=== PATIENT | male | born 1945 | race Caucasian/White ===

== ENCOUNTER 2016-07-21 10:43 | Outpatient (CLI) | payer MEDICARE ==
[2016-07-21 18:04] LABS: Sex Hormone Binding Globulin 60.8 nmol/L (11-78); Testosterone, Total Less than 4.3 ng/dL (221-716)
[2016-07-21 18:42] LABS: Testosterone, Free 1.6 pg/mL (47-244)
== END 2016-07-21 10:44 | disposition home or self-care (01) ==
LOC: NAV LAB 10:43
PROVIDERS: ATTEND Family Medicine
DX: N52.9 Male erectile dysfunction, unspecified (principal)
CPT/HCPCS: 36415; 84270; 84403

== ENCOUNTER 2016-08-05 14:31 | Emergency (ER) | payer MEDICARE ==
[2016-08-05] MEDS ORDERED: Lidocaine 1% 20 ML MDV ONE (14:43)
--- NOTE | 2016-08-05 15:12 | CT ---
CT OF THE BRAIN WITHOUT CONTRAST: COMPARISON: None. HISTORY: Head injury after a fall. TECHNIQUE: Multiple contiguous axial images were obtained in a CT of the brain without contrast. FINDINGS: The brain is normal in morphology and attenuation without focal lesions or confluent areas of infarc tion. There is no evidence of hydrocephalus, intracranial hemorrhage, or extraaxial fluid collectio n. Soft tissue swelling is seen in the occipital scalp. The underlying calvarium is unremarkable. The visualized paranasal sinuses and mastoid air cells are well aerated. IMPRESSION: No evidence of acute intracranial abnormality. POS: [facility]
[2016-08-05] MEDS ORDERED: HYDROcodone/Acetaminophen 10/325 mg Tablet ONE (15:20)
[2016-08-05] MEDS ORDERED: Adacel (T-DAP) 0.5 ML VIAL ONE (15:23)
--- NOTE | 2016-08-05 15:31 | ERRECORD ---
[facility] EMERGENCY RECORD HPI HEAD INJURY (14:43 JLOY) CHIEF COMPLAINT: Patient presents for evaluation of head injury, Patient presents for evaluation of Pt was picking up a heavy object and lost his balance. Fell backward and hit his head on a metal shelving unit. Remembers the fall and hit but says 'everything went white for a second' and he believes he may have passed out for a second. Was able to get up and ambulate though dizzy. Occipital laceration bleeding initially but now slowed. EMS put in a c-collar. Denies neck pain or back pain though he has some chronic pain due to previous injury and fusions. HISTORIAN: History provided by patient. MECHANISM OF INJURY: Mechanism of injury fall, from standing, landing on hard surface, landing on head. LOCATION: Symptoms are localized, most severe in the occipital region. TIME COURSE: Sudden onset of symptoms, There has been no change in the patient's symptoms over time. ASSOCIATED WITH: No associated blurred vision, Associated with dizziness, Associated with headache, Associated with injury, Associated with loss of consciousness, less than 1 minute, No associated nausea, No associated numbness, Associated with open wounds, straight laceration, bleeding controlled, no associated siezure, No associated swelling, No associated tingling, No associated vomiting, No associated weakness. EXACERBATED BY: Patient's condition exacerbated by nothing. RELIEVED BY: Patient's condition relieved by nothing. RISK FACTORS: Intracranial bleed risk factors, advanced age. ROS (14:46 JLOY) CONSTITUTIONAL: Historian denies chills, denies fever, denies lethargy, denies malaise. EYES: Historian denies eye pain, denies photophobia, denies vision changes. ENT: Historian denies rhinorrhea, denies sore throat. CARDIOVASCULAR: Historian denies chest pain. RESPIRATORY: Historian denies cough, denies shortness of breath. GI: Historian denies nausea, denies vomiting. MUSCULOSKELETAL: Historian denies back pain, denies neck pain. NEUROLOGIC: Historian reports dizziness, reports headache, denies paralysis, denies paresthesias, denies sensory changes. Pt reports only slight pain at the laceration wound itself. PAST MEDICAL HISTORY MEDICAL HISTORY: No past medical history. (14:43 JNOL) MALE SURGICAL HISTORY: BACK AND NECK SURGERY,, Surgical history of orthopedic surgery, LEFT SHOULDER/KNEE, Surgical history of tonsillectomy. (14:43 JNOL) PSYCHIATRIC HISTORY: Notes: ADHD. (14:43 JNOL) &a-1R&a+25V*p+0X*o3043M*c202B*c15G*c2P*p-0X&a-25V&a+1R Name: Enrike Gama : 1945 M71 MedRec: [id number] AcctNum: [id number] Prepared: Sat Aug 05, 2016 16:14 by Interface Page 1 of 3 pMD [facility] EMERGENCY RECORD SOCIAL HISTORY: Patient denies alcohol use, Patient denies drug use, Patient has no smoking history. (14:43 JNOL) NOTES: Nursing records reviewed, Agree with nursing records. (14:48 JLOY) KNOWN ALLERGIES adhesive Penicillins: Reaction: Rash CURRENT MEDICATIONS No recorded medications PHYSICAL EXAM (14:47 JLOY) CONSTITUTIONAL: Vital Signs Reviewed, Patient appears non toxic, Patient alert and oriented to person, place and time. HEAD: Lacerations, to occipital. EYES: Eye exam included findings of eyelids normal to inspection, Pupils equally round and reactive to light, Extraocular muscles intact, Conjunctiva normal. ENT: Pharynx exam normal, Uvula exam normal, Tonsil exam normal, Mouth exam normal, mucous membranes moist. NECK: Neck exam included findings of normal range of motion, Trachea midline, no tenderness, No midline or lateral tenderness. Full ROM without pain. RESPIRATORY CHEST: Respiratory exam included findings of no respiratory distress, Breath sounds clear, No wheezing, No rales, No rhonchi. CARDIOVASCULAR: Cardiovascular exam included findings of heart rate regular rate and rhythm, Heart sounds normal. BACK: Back exam included findings of normal inspection, range of motion normal, no tenderness. UPPER EXTREMITY: Upper extremity exam included findings of inspection normal, Radial pulse normal, no cyanosis, no clubbing, no edema, Right elbow with small abrasion. LOWER EXTREMITY: Lower extremity exam included findings of inspection normal, Pedal pulse normal, no edema, no calf tenderness. NEURO: [place] coma scale 15, Neuro exam findings include patient oriented to person, place and time, Speech normal, Memory normal, Cranial nerves intact, Deep tendon reflexes normal. SKIN: Skin exam included findings of skin warm, dry, and normal in color, no rash. PSYCHIATRIC: Normal affect. RADIOLOGYINTERPRETATION (15:22 TYRONE) HEAD: Head CT negative, without contrast. BUCCARO: Preliminary review of CT scans by, Radiologist. MEDICATION ADMINISTRATION SUMMARY Drug Name: HYDROcodone-acetaminophen, Dose Ordered: 2 tab(s), Route: &a-1R&a+25V*p+0X*[id number]*c202B*c15G*c2P*p-0X&a-25V&a+1R Name: Enrike Gama : 1945 M71 MedRec: [id number] AcctNum: [id number] Prepared: Sat Aug 05, 2016 16:14 by Interface Page 2 of 3 pMD [facility] EMERGENCY RECORD Oral, Status: Given, Time: 15:30 08/05/2016, Drug Name: Adacel(Tdap Adolesn/Adult)(PF), Dose Ordered: 0.5 mL, Route: Intramuscular, Status: Given, Time: 15:30 08/05/2016, Detailed record available in Medication Service section. DOCTOR NOTES (15:17 TYRONE) TEXT: Pt reports he is overdue on his regular [place]. He normally takes 2 10mg tablets at a time. Will give his usual dose. PROBLEM LIST No recorded problems DIAGNOSIS (15:18 TYRONE) FINAL: PRIMARY: UNS OPEN WOUND SCALP INITIAL ENCNTR. PRESCRIPTION No recorded prescriptions DISPOSITION PATIENT: Disposition Type: Discharge, Disposition: *Discharge Home. (15:18 TYRONE) Patient left the department. (16:10 BRANDON) Canas: TYRONE=MD Christian, Jesus TAYLOR=GERSNO Franz, Cesia &a-1R&a+25V*p+0X*[id number]*c202B*c15G*c2P*p-0X&a-25V&a+1R Name: nErike Gama : 1945 M71 MedRec: [id number] AcctNum: [id number] Prepared: Sat Aug 05, 2016 16:14 by Interface Page 3 of 3 pMD MTDD
--- NOTE | 2016-08-05 15:37 | PICIS ---
[facility] EMERGENCY RECORD TRIAGE ([facility] Aug 05, 2016 14:33 JNOL) TRIAGE NOTES: Fall, trauma activation. ([facility] Aug 05, 2016 14:33 JNOL) PATIENT: NAME: Enrike Gama, AGE: 71, GENDER: male, : Sun 1945, TIME OF GREET: [facility] Aug 05, 2016 14:31, PREFERRED LANGUAGE: Cypriot, ETHNICITY: Not or , ECODE BILLING MAP: [facility] ER, SSN: [id number], Zip Code: [address], KG WEIGHT: 98.88, PHONE: , , , PERSON ID: [id number]. ([facility] Aug 05, 2016 14:33 JNOL) COMPLAINT: HEAD INJURY/FALL. ([facility] Aug 05, 2016 14:33 JNOL) ADMISSION: URGENCY: 3 Urgent, ADMISSION SOURCE: Other, AMBULANCE: [facility], TRANSPORT: AMBULANCE - [facility], BED: ER *TR1. ([facility] Aug 05, 2016 14:33 JNOL) SIRS SCORING: Heart Rate 55-109 (0), Temp range 96.8-101.1 (0), respiratory rate 12-24 (0), Mental Status altered: no (0). (14:43 JNOL) TRIAGE SCREENING: Patient denies suicidal ideation, Patient denies presence of domestic violence. (14:43 JNOL) TREATMENTS IN PROGRESS: Saline Lock, Site: L hand, Gauge: 20. (14:43 JNOL) PROVIDERS: TRIAGE NURSE: Cesia Franz RN. ([facility] Aug 05, 2016 14:33 JNOL) KNOWN ALLERGIES adhesive Penicillins: Reaction: Rash CURRENT MEDICATIONS No recorded medications NURSING PROCEDURE: DISCHARGE NOTE (16:09 JNOL) DISCHARGE: Patient discharged to home, ambulating without assistance, family driving, accompanied by //partner, Discharge instructions given to patient, Simple or moderate discharge teaching performed, by GERSON Callaway, When to return to ER, follow up care, Above person(s) verbalized understanding of discharge instructions and follow-up care, Patient treated and evaluated by physician. BELONGINGS: Belongings and valuables with patient at time of discharge include:, Belongings remain with patient. NURSING PROCEDURE: NURSE NOTES (14:46 JNOL) NURSES NOTES: Notes: See trauma charting for all assessments and procedures. NURSING PROCEDURE: TRANSPORT TO TESTS (14:58 CCRI) TRANSPORT TO TESTS: Patient transported to CT scan, via cart, Accompanied by x-ray technician preventative medicine, Patient arrived in location at 14:44, Patient departed location at 14:55. &a-1R&a+25V*p+0X*s2384K*c202B*c15G*c2P*p-0X&a-25V&a+1R Name: Enrike Gama : 1945 M71 MedRec: [id number] AcctNum: [id number] Prepared: Sat Aug 05, 2016 16:20 by Interface Page 1 of 5 D [facility] EMERGENCY RECORD ORDER DETAILS Order Name: CT Brain WO Con, Status: Active, Time: 14:40 08/05/2016, User: TYRONE, - Ordered for: MD Gonzales Joshua, - Entered by: MD Gonzales Joshua - [facility] Aug 05, 2016 14:40, - Quantity: 1. MEDICATION ADMINISTRATION SUMMARY Drug Name: HYDROcodone-acetaminophen, Dose Ordered: 2 tab(s), Route: Oral, Status: Given, Time: 15:30 08/05/2016, Drug Name: Adacel(Tdap Adolesn/Adult)(PF), Dose Ordered: 0.5 mL, Route: Intramuscular, Status: Given, Time: 15:30 08/05/2016, Detailed record available in Medication Service section. MEDICATION SERVICE Adacel(Tdap Adolesn/Adult)(PF): Order: Adacel(Tdap Adolesn/Adult)(PF) (diphth,pertuss(acell),tet vac/preservative free) - Dose: 0.5 mL : Intramuscular Ordered by: Jesus Gonzales MD Entered by: Jesus Gonzales MD [facility] Aug 05, 2016 15:20 , Acknowledged by: Cesia Franz RN [facility] Aug 05, 2016 15:22 Documented as given by: Cesia Franz RN [facility] Aug 05, 2016 15:30 Patient, Medication, Dose, Route and Time verified prior to administration. IM immunization, Amount given: 0.5 ml, Medication administered to right deltoid, Vaccination information sheet given to patient, Patient appears Awake and alert- acceptable, Correct patient, time, route, dose and medication confirmed prior to administration, Patient advised of actions and side-effects prior to administration, Allergies confirmed and medications reviewed prior to administration, Patient in position of comfort, Side rails up, Cart in lowest position. : Follow Up : No signs or symptoms of allergic reaction noted. (16:09 JNOL) HYDROcodone-acetaminophen: Order: HYDROcodone-acetaminophen (hydrocodone bitartrate/acetaminophen) - Dose: 2 tab(s) : Oral Ordered by: Jesus Gonzales MD Entered by: Jesus Gonzales MD Sat Aug 05, 2016 15:17 , Acknowledged by: Cesia Franz RN Sat Aug 05, 2016 15:18 Documented as given by: Cesia Franz RN Sat Aug 05, 2016 15:30 Patient, Medication, Dose, Route and Time verified prior to administration. Amount given: 2 tabs, Site: Medication administered P.O., Correct patient, time, route, dose and medication confirmed prior to administration, Patient advised of actions and side-effects prior to administration, Allergies confirmed and medications reviewed prior to &a-1R&a+25V*p+0X*l6815S*c202B*c15G*c2P*p-0X&a-25V&a+1R Name: Enrike Gama : 1945 M71 MedRec: [id number] AcctNum: [id number] Prepared: Sat Aug 05, 2016 16:20 by Interface Page 2 of 5 pMD [facility] EMERGENCY RECORD administration, Patient in position of comfort, Side rails up, Cart in lowest position, en route. HPI HEAD INJURY (14:43 [facility]) CHIEF COMPLAINT: Patient presents for evaluation of head injury, Patient presents for evaluation of Pt was picking up a heavy object and lost his balance. Fell backward and hit his head on a metal shelving unit. Remembers the fall and hit but says 'everything went white for a second' and he believes he may have passed out for a second. Was able to get up and ambulate though dizzy. Occipital laceration bleeding initially but now slowed. EMS put in a c-collar. Denies neck pain or back pain though he has some chronic pain due to previous injury and fusions. HISTORIAN: History provided by patient. MECHANISM OF INJURY: Mechanism of injury fall, from standing, landing on hard surface, landing on head. LOCATION: Symptoms are localized, most severe in the occipital region. TIME COURSE: Sudden onset of symptoms, There has been no change in the patient's symptoms over time. ASSOCIATED WITH: No associated blurred vision, Associated with dizziness, Associated with headache, Associated with injury, Associated with loss of consciousness, less than 1 minute, No associated nausea, No associated numbness, Associated with open wounds, straight laceration, bleeding controlled, no associated siezure, No associated swelling, No associated tingling, No associated vomiting, No associated weakness. EXACERBATED BY: Patient's condition exacerbated by nothing. RELIEVED BY: Patient's condition relieved by nothing. RISK FACTORS: Intracranial bleed risk factors, advanced age. ROS (14:46 JLOY) CONSTITUTIONAL: Historian denies chills, denies fever, denies lethargy, denies malaise. EYES: Historian denies eye pain, denies photophobia, denies vision changes. ENT: Historian denies rhinorrhea, denies sore throat. CARDIOVASCULAR: Historian denies chest pain. RESPIRATORY: Historian denies cough, denies shortness of breath. GI: Historian denies nausea, denies vomiting. MUSCULOSKELETAL: Historian denies back pain, denies neck pain. NEUROLOGIC: Historian reports dizziness, reports headache, denies paralysis, denies paresthesias, denies sensory changes. Pt reports only slight pain at the laceration wound itself. PAST MEDICAL HISTORY MEDICAL HISTORY: No past medical history. (14:43 JNOL) MALE SURGICAL HISTORY: BACK AND NECK SURGERY,, Surgical &a-1R&a+25V*p+0X*s4213Y*c202B*c15G*c2P*p-0X&a-25V&a+1R Name: Enrike Gama : 1945 M71 MedRec: [id number] AcctNum: [id number] Prepared: Sat Aug 05, 2016 16:20 by Interface Page 3 of 5 pMD [facility] - [facility] EMERGENCY RECORD history of orthopedic surgery, LEFT SHOULDER/KNEE, Surgical history of tonsillectomy. (14:43 JNOL) PSYCHIATRIC HISTORY: Notes: ADHD. (14:43 JNOL) SOCIAL HISTORY: Patient denies alcohol use, Patient denies drug use, Patient has no smoking history. (14:43 JNOL) NOTES: Nursing records reviewed, Agree with nursing records. (14:48 JLOY) PHYSICAL EXAM (14:47 JLOY) CONSTITUTIONAL: Vital Signs Reviewed, Patient appears non toxic, Patient alert and oriented to person, place and time. HEAD: Lacerations, to occipital. EYES: Eye exam included findings of eyelids normal to inspection, Pupils equally round and reactive to light, Extraocular muscles intact, Conjunctiva normal. ENT: Pharynx exam normal, Uvula exam normal, Tonsil exam normal, Mouth exam normal, mucous membranes moist. NECK: Neck exam included findings of normal range of motion, Trachea midline, no tenderness, No midline or lateral tenderness. Full ROM without pain. RESPIRATORY CHEST: Respiratory exam included findings of no respiratory distress, Breath sounds clear, No wheezing, No rales, No rhonchi. CARDIOVASCULAR: Cardiovascular exam included findings of heart rate regular rate and rhythm, Heart sounds normal. BACK: Back exam included findings of normal inspection, range of motion normal, no tenderness. UPPER EXTREMITY: Upper extremity exam included findings of inspection normal, Radial pulse normal, no cyanosis, no clubbing, no edema, Right elbow with small abrasion. LOWER EXTREMITY: Lower extremity exam included findings of inspection normal, Pedal pulse normal, no edema, no calf tenderness. NEURO: [place] coma scale 15, Neuro exam findings include patient oriented to person, place and time, Speech normal, Memory normal, Cranial nerves intact, Deep tendon reflexes normal. SKIN: Skin exam included findings of skin warm, dry, and normal in color, no rash. PSYCHIATRIC: Normal affect. EVENTS TRANSFER: Triage to Emergency Emergency Room *TR1. (Sat Aug 05, 2016 14:33 JNOL) Removed from Emergency Emergency Room *TR1. (16:10 JNOL) RADIOLOGYINTERPRETATION (15:22 JLOY) HEAD: Head CT negative, without contrast. QUALITY CONTROL DIRECTOR: Preliminary review of CT scans by, Radiologist. DOCTOR NOTES (15:17 JLOY) TEXT: Pt reports he is overdue on his regular [place]. He &a-1R&a+25V*p+0X*q2589V*c202B*c15G*c2P*p-0X&a-25V&a+1R Name: Enrike Gama : 1945 M71 MedRec: [id number] AcctNum: [id number] Prepared: [facility] Aug 05, 2016 16:20 by Interface Page 4 of 5 pMD [facility] EMERGENCY RECORD normally takes 2 10mg tablets at a time. Will give his usual dose. LACERATION-SINGLE REPAIR (15:21 JLOY) TIMEOUT: Side and/or site verified, Patient identification confirmed, Sterile procedures observed. LACERATION REPAIR: Verbal consent obtained, Patient prepped and draped in usual sterile fashion, Wound irrigated with normal saline, Laceration repair with chelsea, using 6 chelsea, to scalp, total length 4.0 cm, After procedure, wound well approximated, antibiotic ointment applied, dressing applied, No complications, Tetanus status not up to date, tetanus immunization ordered, Patient tolerated the procedure well, No foreign body present. PROBLEM LIST No recorded problems DIAGNOSIS (15:18 JLOY) FINAL: PRIMARY: UNS OPEN WOUND SCALP INITIAL ENCNTR. DISPOSITION PATIENT: Disposition Type: Discharge, Disposition: *Discharge Home. (15:18 JLOY) Patient left the department. (16:10 JNOL) INSTRUCTION (15:18 JLOY) DISCHARGE: LACERATION, SCALP. FOLLOWUP: MD Cheney Katherine, [facility], [address] [place] [address], [facility] [address], , Follow up with Primary Care Physician in 5 days. PRESCRIPTION No recorded prescriptions ADMIN (15:23 JLOY) DIGITAL SIGNATURE: MD Gonzales Joshua. Canas: CCRI=LEODAN Ahumada Clemente JLOY=MD Gonzales Joshua JNOL=GERSON Franz, Cesia &a-1R&a+25V*p+0X*n5140K*c202B*c15G*c2P*p-0X&a-25V&a+1R Name: Enrike Gama : 1945 M71 MedRec: [id number] AcctNum: [id number] Prepared: [facility] Aug 05, 2016 16:20 by Interface Page 5 of 5 pMD MTDD
== END 2016-08-05 16:03 | disposition home or self-care (01) ==
LOC: NAV ERS 14:31
DX: S01.01XA Laceration without foreign body of scalp, initial encounter (principal); S50.311A Abrasion of right elbow, initial encounter; F90.9 Attention-deficit hyperactivity disorder, unspecified type; W19.XXXA Unspecified fall, initial encounter
CPT/HCPCS: 12002; 70450; 90471; 90715; J2001

== ENCOUNTER 2017-01-05 13:29 | Emergency (ER) | payer MEDICARE ==
--- NOTE | 2017-01-05 14:42 | CT ---
CT OF THE FACE WITHOUT CONTRAST: Comparison: None. History: Jaw pain that began after eating a frozen Snickers. Patient heard something crack and his t eeth are not lining up anymore. Technique: Multiple contiguous axial images were obtained in a CT of the face without contrast. Sagittal and co guera reformats were performed. FINDINGS: Multiple fillings and dental amalgams produce streak artifact slightly limiting this exam. No fractu re of the mandible is seen. No fracture of the maxilla is seen. Dental caries are present. No obviou s periapical lucency is seen surrounding any of the remaining teeth. No facial soft tissue swelling is seen. The globes and retrobulbar soft tissues are unremarkable. IMPRESSION: No evidence of facial fracture. POS: [facility]
== END 2017-01-05 14:47 | disposition home or self-care (01) ==
LOC: NAV ERS 13:29
DX: M26.622 Arthralgia of left temporomandibular joint (principal); F43.10 Post-traumatic stress disorder, unspecified; F90.9 Attention-deficit hyperactivity disorder, unspecified type; Z79.899 Other long term (current) drug therapy
CPT/HCPCS: 70486; 85652

== ENCOUNTER 2017-07-06 10:46 | Emergency (ER) | payer MEDICARE ==
[2017-07-06] MEDS ORDERED: methylPREDNISolone Sod Succ/PF 125 MG/2 ML VIAL ONE (11:47)
[2017-07-06 11:49] LABS: Hemoglobin 14.4 g/dL (14.0-18.0); Mean Corpuscular HGB CONC 33.7 g/dL (32.0-36.0); Mean Corpuscular Hemoglobin 31.8 pg (27.0-31.0); Mean Corpuscular Volume 94.4 fl (80.0-94.0); Mean Platelet Volume 9.2 fL (7.4-10.4); Platelet Count 142 thou/uL (130-400); RBC Distribution Width 12.9 % (11.5-14.5); Red Blood Cell (RBC) Count 4.52 mill/uL (4.70-6.10); White Blood Cell (WBC) Count 22.4 thou/uL (4.8-10.8)
[2017-07-06 11:50] LABS: Band 5 % (5-11); Lymphocytes 14 % (21-51); MDiff Complete? YES; Monocytes 7 % (0-10); Neutrophil 74 % (42-75); PLT Morphology Comment Appears Adequate
[2017-07-06 11:54] LABS: Anion Gap 13 mmol/L (10-20); BUN (Urea Nitrogen) 18 mg/dL (8.4-25.7); CKMB 4.7 ng/mL (0-6.6); Calc. Creatinine Clearance 0 mL/min (70-130); Calcium 9.2 mg/dL (7.8-10.44); Carbon Dioxide 27 mmol/L (23-31); Chloride 104 mmol/L (98-107); Estimated GFR-MDRD 83; Glucose 126 mg/dL (83-110); Potassium 3.8 mmol/L (3.5-5.1); Sodium 140 mmol/L (136-145); Troponin I 0.116 ng/mL (< 0.028)
--- NOTE | 2017-07-06 12:19 | RAD ---
CHEST ONE VIEW: History: Dyspnea. Fever. Comparison: None. FINDINGS: Portable semi upright chest demonstrates a normal cardiac silhouette. The pulmonary vessels and hilum are normal. Costophrenic angles are clear. No mass. No consolidation. No pneumothorax. There is bila teral shoulder arthroplasty. Post-surgical changes in the cervical spine are noted. IMPRESSION: No acute cardiopulmonary process. POS: [facility]
== END 2017-07-06 14:10 | disposition short-term general hospital (02) ==
LOC: NAV ERS 10:46
DX: J18.9 Pneumonia, unspecified organism (principal); J01.90 Acute sinusitis, unspecified; R79.89 Other specified abnormal findings of blood chemistry; K21.9 Gastro-esophageal reflux disease without esophagitis; E78.5 Hyperlipidemia, unspecified; J45.909 Unspecified asthma, uncomplicated; F43.10 Post-traumatic stress disorder, unspecified; Z79.891 Long term (current) use of opiate analgesic; Z79.899 Other long term (current) drug therapy
CPT/HCPCS: 36415; 71045; 80048; 82553; 83605; 83880; 84484; 85025; 87040; 93005; 94640; 94760; 96365; 96375; J1956; J2930; J7620

== ENCOUNTER 2017-10-29 19:18 | Emergency (ER) | payer MEDICARE ==
[~2017-10-29 19:18] MED LIST: Iopamidol 370 76% 100 ML VIAL ONE
[2017-10-29 19:58] LABS: #Basophils 0.1 thou/uL (0.0-0.2); #Eosinphils 0.3 thou/uL (0.0-0.7); #Monocytes 0.9 thou/uL (0.11-0.59); #Neutrophils 14.1 thou/uL (1.40-6.50); %Basophils 0.6 % (0.0-1.0); %Eosinophils 1.5 % (0.0-10.0); %Lymphocytes 16.3 % (21.0-51.0); %Monocytes 4.7 % (0.0-10.0); %Neutrophils 76.9 % (42.0-75.0); Mean Corpuscular HGB CONC 32.5 g/dL (32.0-36.0); Mean Corpuscular Hemoglobin 30.8 pg (27.0-31.0); Mean Corpuscular Volume 94.6 fl (80.0-94.0); Mean Platelet Volume 8.3 fL (7.4-10.4); Platelet Count 234 thou/uL (130-400); RBC Distribution Width 12.2 % (11.5-14.5); Red Blood Cell (RBC) Count 4.55 mill/uL (4.70-6.10); White Blood Cell (WBC) Count 18.4 thou/uL (4.8-10.8)
[2017-10-29] MEDS ORDERED: Sodium Chloride 0.9% 3,000 ML ONE (20:00)
[2017-10-29 20:12] LABS: ALT (SGPT) 30 U/L (8-55); AST (SGOT) 19 U/L (5-34); Albumin 3.8 g/dL (3.4-4.8); Alkaline Phosphatase 94 U/L (40-150); Anion Gap 13 mmol/L (10-20); BUN (Urea Nitrogen) 27 mg/dL (8.4-25.7); Bilirubin, Total 0.5 mg/dL (0.2-1.2); Calc. Creatinine Clearance 0 mL/min (70-130); Calcium 8.6 mg/dL (7.8-10.44); Carbon Dioxide 27 mmol/L (23-31); Chloride 103 mmol/L (98-107); Estimated GFR-MDRD 73; Globulin 2.2 g/dL (2.4-3.5); Glucose 131 mg/dL (83-110); Sodium 139 mmol/L (136-145)
[2017-10-29 20:14] LABS: CKMB 3.5 ng/mL (0-6.6); Troponin I Less than 0.010 ng/mL (< 0.028)
[2017-10-29] MEDS ORDERED: Piperacillin/Tazobactam 3.375 GM VIAL ONE (20:14)
[2017-10-29] MEDS ORDERED: Sodium Chloride 0.9% 100 ML ONE (20:14)
[2017-10-29] MEDS ORDERED: Sodium Chloride 0.9% 250 ML 250 ML ONE (20:26)
--- NOTE | 2017-10-29 21:39 | RAD ---
SEMIUPRIGHT PORTABLE FRONTAL CHEST RADIOGRAPH: 10/29/2017 HISTORY: Syncope. Hypovolemia. COMPARISON: 07/06/2017 FINDINGS: Mild diffuse interstitial prominence and pulmonary vascular congestion. Heart and mediastinal contou rs are stable. Cervical spine hardware and bilateral shoulder arthroplasties present. No acute findings. IMPRESSION: Stable appearance of the chest. POS: [facility]
--- NOTE | 2017-10-29 21:52 | CT ---
HEAD CT WITHOUT CONTRAST: 10/29/2017 HISTORY: Syncope. Hypovolemia. COMPARISON: 08/05/2016 TECHNIQUE: Serial axial CT imaging is obtained at 5 mm intervals, from the vertex through the skull base, withou t contrast. FINDINGS: The imaged paranasal sinuses and mastoid air cells are well aerated. There is no displaced calvarial fracture. No intracranial hemorrhage, midline shift, mass effect, or ventricular enlargement. IMPRESSION: No acute findings. POS: [facility]
--- NOTE | 2017-10-29 22:07 | CT ---
CT ANGIOGRAM CHEST: 10/29/2017 HISTORY: Syncope. Hypotension. Chest pain. Assess for pulmonary embolism. TECHNIQUE: Serial axial CT imaging is obtained at 2.5 mm intervals, from the thoracic inlet through the upper ab domen, with IV contrast, using a CT angiogram protocol. Oblique coronal and sagittal 3D reformatted imaging obtained. FINDINGS: Evaluation of the upper abdomen demonstrates fatty atrophy of the imaged pancreas. There is contrast media within the intrahepatic IVC and the hepatic vein, suggesting reflux from suboptimal cardiac ou tput. No significant pleural, pericardial, or mediastinal fluid. There is cervical spine hardware n oted on the sewer maintenance supervisor imaging, incompletely assessed on this study. Bilateral shoulder arthroplasties ar e present. There is no axillary adenopathy. No mediastinal or left hilar adenopathy. Mild hilar prominence is noted on the right, measuring up to 1 cm. Streak artifact from venous contrast media limits assessment of the main pulmonary trunk and bilatera l main pulmonary arteries, right greater than left. There is no discrete filling defect appreciated within the pulmonary arterial vasculature, centrally. Distal pulmonary arteries within bilateral low er lobes, are limited in assessment secondary to motion. No obvious pulmonary embolism is apparent o n this examination. There is no evidence for pneumothorax on either side. Evaluation of the bilateral lower lobes is limited secondary to respiratory motion artifact. There is mild ground glass opacity noted in the superior segment of the right lower lobe, which may s ignify volume loss or infiltrate. On axial image 51, there is a focal are of parenchymal opacity wit hin the superior segment, right lower lobe, measuring up to 1.5 cm. This could be on the basis of in filtrate, volume loss, or mass. Given the possibility of mass, follow-up chest CT in 4-6 weeks is ad vised. The osseous structures demonstrate no acute findings. There is extensive degenerative change involvi ng the mid and lower thoracic spine with multilevel disk space narrowing, degenerative endplate robertson e, and osteophyte formation. There is atherosclerotic calcification of the thoracic aorta and the co ronary arteries, incompletely assessed on this exam. IMPRESSION: 1. No evidence for central pulmonary embolism. Limited assessment of the distal pulmonary arterial vasculature, as detailed above. 2. Contrast media extending into the inferior vena cava and hepatic veins. 3. Focal areas of patchy opacity in the superior segment, right lower lobe, which could represent vo lume loss or infiltrate. In order to exclude underlying mass, follow-up chest CT in 4-6 weeks advise prakash Mathis POS: [facility]
== END 2017-10-29 20:54 | disposition short-term general hospital (02) ==
LOC: NAV ERS 19:18
DX: A41.9 Sepsis, unspecified organism (principal); I95.9 Hypotension, unspecified; D72.829 Elevated white blood cell count, unspecified; R55 Syncope and collapse; K21.9 Gastro-esophageal reflux disease without esophagitis; E78.5 Hyperlipidemia, unspecified; J45.909 Unspecified asthma, uncomplicated; F43.10 Post-traumatic stress disorder, unspecified; Z79.899 Other long term (current) drug therapy
CPT/HCPCS: 70450; 71045; 71275; 80053; 82553; 83605; 84484; 85025; 87040; 93005; 94760; 96361; 96374; J2543; J3370; J7050

== ENCOUNTER 2019-02-17 11:47 | Outpatient (CLI) | payer MEDICARE ==
--- NOTE | 2019-02-17 12:05 | RAD ---
2 views of the right shoulder: 02/17/2019 COMPARISON: 08/13/2015 HISTORY: Osteoarthritis FINDINGS: There is a total right shoulder arthroplasty. There is stable degenerative change at the ri ght acromioclavicular joint. No dislocation or acute fracture is seen. There is incompletely imaged cervical spine hardware present. IMPRESSION: Postoperative and degenerative change as detailed above. No acute fracture or dislocation .
== END 2019-02-17 11:48 | disposition home or self-care (01) ==
LOC: NAV RAD 11:47
DX: M19.011 Primary osteoarthritis, right shoulder (principal); Z98.890 Other specified postprocedural states

== ENCOUNTER 2019-04-10 19:35 | Emergency (ER) | payer MEDICARE ==
[2019-04-10] MEDS ORDERED: Ipratropium Bromide 2.5 ml Neb ONE (19:55)
[2019-04-10] MEDS ORDERED: Albuterol Sulfate 2.5 mg/3 ml Neb ONE (19:55)
[2019-04-10] MEDS ORDERED: Albuterol Sulfate 2.5 mg/0.5 ml Neb ONE (19:55)
[2019-04-10] MEDS ORDERED: Acetaminophen 500 MG TAB ONE (19:56)
[2019-04-10] MEDS ORDERED: predniSONE 20 MG TAB ONE (19:56)
== END 2019-04-10 21:12 | disposition home or self-care (01) ==
LOC: NAV ERS 19:35
DX: J44.1 Chronic obstructive pulmonary disease with (acute) exacerbation (principal); K21.9 Gastro-esophageal reflux disease without esophagitis; E78.5 Hyperlipidemia, unspecified; E78.00 Pure hypercholesterolemia, unspecified; F43.10 Post-traumatic stress disorder, unspecified; Z79.899 Other long term (current) drug therapy; Z79.51 Long term (current) use of inhaled steroids
CPT/HCPCS: 87804; 94640; J7512; J7611

== ENCOUNTER 2019-05-03 15:42 | Emergency (ER) | payer MEDICARE | END 2019-05-03 16:22 | disposition home or self-care (01) | LOC: NAV ERS 15:42 | DX: J39.2 Other diseases of pharynx (principal); R13.10 Dysphagia, unspecified; K21.9 Gastro-esophageal reflux disease without esophagitis; E78.5 Hyperlipidemia, unspecified; E78.00 Pure hypercholesterolemia, unspecified; J44.9 Chronic obstructive pulmonary disease, unspecified; F43.10 Post-traumatic stress disorder, unspecified; Z79.899 Other long term (current) drug therapy | CPT/HCPCS: 99283 ==

== ENCOUNTER 2019-05-31 22:20 | Emergency (ER) | payer MEDICARE | END 2019-05-31 23:13 | disposition home or self-care (01) | LOC: NAV ERS 22:20 | DX: M96.842 Postprocedural seroma of a musculoskeletal structure following a musculoskeletal system procedure (principal); J44.9 Chronic obstructive pulmonary disease, unspecified | CPT/HCPCS: 99283 ==

== ENCOUNTER 2019-06-13 10:58 | Emergency (ER) | payer MEDICARE ==
--- NOTE | 2019-06-13 11:40 | RAD ---
XR Shoulder Rt 3 View STANDARD History: Injury. Pain Comparison: Shoulder radiograph February 17, 2019 Findings: There appears be a new hardware along the medial aspect proximal humeral metadiaphysis with healing. Prosthesis fracture. Impression: New hardware along the humeral metadiaphysis with healing periprosthesis fracture along t he humeral stem.
[2019-06-13] MEDS ORDERED: Lidocaine 1% (PF) 30 ML VIAL ONE (12:13)
== END 2019-06-13 12:29 | disposition home or self-care (01) ==
LOC: NAV ERS 10:58
DX: S40.011A Contusion of right shoulder, initial encounter (principal); E78.5 Hyperlipidemia, unspecified; E78.00 Pure hypercholesterolemia, unspecified; J44.9 Chronic obstructive pulmonary disease, unspecified; F43.10 Post-traumatic stress disorder, unspecified; K21.9 Gastro-esophageal reflux disease without esophagitis; Z79.891 Long term (current) use of opiate analgesic; Z79.899 Other long term (current) drug therapy; Z87.01 Personal history of pneumonia (recurrent); Z79.1 Long term (current) use of non-steroidal anti-inflammatories (NSAID); W01.0XXA Fall on same level from slipping, tripping and stumbling without subsequent striking against object, initial encounter
CPT/HCPCS: J2001

== ENCOUNTER 2019-07-22 13:32 | Outpatient (CLI) | payer MEDICARE ==
--- NOTE | 2019-07-22 14:03 | RAD ---
2 views left hip: 07/22/2019 COMPARISON: 03/01/2016 HISTORY: Left-sided hip pain FINDINGS: Mild superior joint space narrowing. Mild lateral acetabular osteophyte formation. There is atherosclerotic calcification within the left inguinal region. Incompletely imaged lower lumbar spine postoperative hardware present. No acute fracture or dislocation. No significant interval robertson e. IMPRESSION: Stable degenerative joint disease at the left hip.
== END 2019-07-22 13:33 | disposition home or self-care (01) ==
LOC: NAV RAD 13:32
DX: M25.552 Pain in left hip (principal); M16.12 Unilateral primary osteoarthritis, left hip

== ENCOUNTER 2019-08-13 21:48 | Emergency (ER) | payer MEDICARE ==
[2019-08-13 22:17] LABS: #Basophils 0.2 thou/uL (0.0-0.2); #Eosinphils 0.5 thou/uL (0.0-0.7); #Lymphocytes 3.6 thou/uL (1.20-3.40); #Monocytes 1.1 thou/uL (0.11-0.59); #Neutrophils 4.6 thou/uL (1.40-6.50); %Basophils 1.5 % (0.0-1.0); %Eosinophils 5.1 % (0.0-10.0); %Lymphocytes 36.1 % (21.0-51.0); %Monocytes 10.9 % (0.0-10.0); %Neutrophils 46.4 % (42.0-75.0); Hemoglobin 15.8 g/dL (14.0-18.0); Mean Corpuscular HGB CONC 32.7 g/dL (32.0-36.0); Mean Corpuscular Hemoglobin 30.5 pg (27.0-31.0); Mean Platelet Volume 7.8 fL (7.4-10.4); Platelet Count 228 thou/uL (130-400); RBC Distribution Width 11.4 % (11.5-14.5); Red Blood Cell (RBC) Count 5.19 mill/uL (4.70-6.10)
[2019-08-13 22:22] LABS: PTT 30.6 SEC (22.9-36.1); Prothrombin Time 13.3 SEC (12.0-14.7)
[2019-08-13 22:30] LABS: ALT (SGPT) 23 U/L (8-55); AST (SGOT) 32 U/L (5-34); Albumin 4.4 g/dL (3.4-4.8); Alkaline Phosphatase 153 U/L (40-110); Anion Gap 18 mmol/L (10-20); BUN (Urea Nitrogen) 11 mg/dL (8.4-25.7); Bilirubin, Total 0.4 mg/dL (0.2-1.2); CK (CPK) 359 U/L (30-200); Calc. Creatinine Clearance 0 mL/min (70-130); Calcium 9.8 mg/dL (7.8-10.44); Carbon Dioxide 25 mmol/L (23-31); Chloride 101 mmol/L (98-107); Estimated GFR-MDRD Greater than 90; Globulin 3.1 g/dL (2.4-3.5); Glucose 78 mg/dL (83-110); Potassium 3.8 mmol/L (3.5-5.1); Protein, Total 7.5 g/dL (5.8-8.1); Sodium 140 mmol/L (136-145)
--- NOTE | 2019-08-13 22:40 | CT ---
CT Brain WO Con: 08/13/2019 10:17 PM CLINICAL HISTORY: Left-sided numbness. IMAGING TECHNIQUE: Multiple CT images were obtained of the brain without IV contrast. COMPARISON: October 29, 2017 CT the brain and MR the brain dated April 05, 2018 FINDINGS: Brain: No acute infarct or hemorrhage is evident. No midline shift. Ventricles: Normal. No hydrocephalus. Skull: Intact. Visualized Paranasal sinuses: Clear. Mastoid air cells:Clear. Extracranial soft tissues:Normal. IMPRESSION: No acute intracranial abnormality. Findings called to Dr. Baez at 10:30 PM on August 13, 2019.
--- NOTE | 2019-08-13 22:45 | CT ---
CTA of the head with IV contrast and 3-D reformatted imaging. CTA of the neck with IV contrast and 3-D reformatted imaging. INDICATION: Stroke COMPARISON: CT of the brain dated 08/13/2019 FINDINGS: CTA OF THE HEAD WITH CONTRAST: CTA OF THE BRAIN: Right ICA: Patent. Right MCA: Patent. Right GRACIELA: Patent. ACOM: Patent. Left ICA: Patent. Left MCA: Patent. Left GRACIELA: Patent. PCOMs: Patent. Vertebral arteries: Patent. Basilar Artery: Patent. double backer: Patent. Incidentals: No abnormal enhancement CTA OF THE NECK WITH CONTRAST: Right CCA: Patent. Right ICA: There is moderate calculation involving the right carotid bulb with mild luminal caliber narrowing involving the origin of the right ICA. The remainder of the right ICA appears patent. Right Subclavian: Patent. Right Vertebral Artery: Patent. Left CCA: Patent. Left ICA: There is moderate consultation involving left carotid bulb. There is mild luminal caliber narrowing involving the origin of the left internal carotid artery. The remainder of the left cervical ICA is patent. Left Subclavian: Patent. Left Vertebral Artery: Patent. Aerodigestive tract: Clear. Parotids/Submandibular/Thyroid glands: Normal. Lymph nodes: No pathologically enlarged lymph nodes. Lung Apices: Clear. Bones: There is an ACDF of C5-C7. There is ankylosis of C4 and C5. There is moderate multilevel cerv ical spondylosis. Incidentals: None. IMPRESSION: 1. No hemodynamically significant stenosis, occlusion or aneurysmal formation.
[2019-08-13] MEDS ORDERED: Aspirin Chewable 81 MG TAB ONE (23:02)
[2019-08-13] MEDS ORDERED: Sodium Chloride 0.9% 1,000 ML ONE (23:11)
--- NOTE | 2019-08-13 23:36 | RAD ---
Chest AP view INDICATION: Left-sided numbness COMPARISON: Prior exam dated October 30, 2017 FINDINGS: Lungs:The lungs are clear Cardiac silhouette:The cardiomediastinal silhouette appears within normal limits. Pulmonary vasculature:Normal Pleural spaces:No pleural effusion or pneumothorax is demonstrated. Upper abdomen:No abnormality seen. Osseous structures: No acute osseous abnormality. Bilateral total shoulder prostheses. ACDF of the lo wer cervical spine. Additional findings:None. IMPRESSION: No acute cardiopulmonary abnormality.
== END 2019-08-13 23:31 | disposition home or self-care (01) ==
LOC: NAV ER/OP 21:48
DX: I10 Essential (primary) hypertension (principal); E86.0 Dehydration; K21.9 Gastro-esophageal reflux disease without esophagitis; E78.5 Hyperlipidemia, unspecified; E78.00 Pure hypercholesterolemia, unspecified; J44.9 Chronic obstructive pulmonary disease, unspecified; Z87.01 Personal history of pneumonia (recurrent); Z79.899 Other long term (current) drug therapy; Z79.891 Long term (current) use of opiate analgesic; Z79.01 Long term (current) use of anticoagulants
CPT/HCPCS: 70450; 70496; 70498; 71045; 80053; 82550; 84484; 85025; 85610; 85730; 93005; 94760; J7050; Q9967

== ENCOUNTER 2019-08-26 08:49 | Emergency (ER) | payer MEDICARE ==
--- NOTE | 2019-08-26 09:36 | RAD ---
Right wrist 3 views HISTORY: Right wrist pain. FINDINGS: Scaphoid waist and ulnar styloid are intact. Joint space narrowing, osteophytosis, and subc hondral sclerosis most pronounced at the first carpometacarpal joint with mild lateral subluxation. There is subtle medial curvature of the shaft of the fifth metacarpal which may represent an old heal ed injury. Small amount of calcification in the triangular fibrocartilaginous complex. No acute fracture, dislocation, or aggressive osseous erosions. Prominent calcification over the arterial stru ctures. IMPRESSION: Osteoarthritis most pronounced at the first carpometacarpal joint. Old healed injury of the right fifth metacarpal. No acute osseous abnormalities are demonstrated. Atherosclerosis.
== END 2019-08-26 09:55 | disposition home or self-care (01) ==
LOC: NAV ERS 08:49
DX: M25.531 Pain in right wrist (principal); M19.90 Unspecified osteoarthritis, unspecified site; K21.9 Gastro-esophageal reflux disease without esophagitis; J44.9 Chronic obstructive pulmonary disease, unspecified; E78.5 Hyperlipidemia, unspecified; E78.00 Pure hypercholesterolemia, unspecified; Z87.01 Personal history of pneumonia (recurrent); Z79.1 Long term (current) use of non-steroidal anti-inflammatories (NSAID); Z79.899 Other long term (current) drug therapy; Z79.891 Long term (current) use of opiate analgesic

== ENCOUNTER 2019-12-23 12:02 | Outpatient (CLI) | payer MEDICARE ==
--- NOTE | 2019-12-23 14:09 | CT ---
RIGHT LOWER EXTREMITY CT SCAN WITHOUT IV CONTRAST: 12/23/19 HISTORY: Right foot first metatarsophalangeal nonunion. FINDINGS: Postoperative fusion changes of the first metatarsophalangeal joint region with internal fixation scr ews and metal plate and screws. There is incomplete union noted. There an internal fixation screw sta bilizing the distal second metatarsal head region. Severe arthrosis changes of the first metatarsal s esamoid joint region. Generalized osteoarthrosis and degenerative changes of the remainder of the vis ualized foot. IMPRESSION: Postoperative changes of the first metatarsophalangeal region with evidence for incomplete union. Int ernal fixation screws stabilizes the distal second metatarsal head region. No significant malalignmen t. POS: RRE
== END 2019-12-23 12:03 | disposition home or self-care (01) ==
LOC: NAV CT 12:02
DX: S92.311K Displaced fracture of first metatarsal bone, right foot, subsequent encounter for fracture with nonunion (principal); Z98.890 Other specified postprocedural states

== ENCOUNTER 2020-09-18 13:07 | Emergency (ER) | payer MEDICARE, OTHER | END 2020-09-18 14:10 | disposition home or self-care (01) | LOC: NAV ERS 13:07 | DX: S23.41XA Sprain of ribs, initial encounter (principal); K21.9 Gastro-esophageal reflux disease without esophagitis; E78.5 Hyperlipidemia, unspecified; E78.00 Pure hypercholesterolemia, unspecified; J45.909 Unspecified asthma, uncomplicated; J44.9 Chronic obstructive pulmonary disease, unspecified; Z79.899 Other long term (current) drug therapy; W22.8XXA Striking against or struck by other objects, initial encounter ==

== ENCOUNTER 2020-11-15 16:23 | Emergency (ER) | payer MEDICARE, OTHER ==
[2020-11-15] MEDS ORDERED: Acetaminophen/Codeine 30-300mg Tablet ONE (17:18)
== END 2020-11-15 17:23 | disposition home or self-care (01) ==
LOC: NAV ERS 16:23
DX: S81.812A Laceration without foreign body, left lower leg, initial encounter (principal); S00.03XA Contusion of scalp, initial encounter; E78.5 Hyperlipidemia, unspecified; J44.9 Chronic obstructive pulmonary disease, unspecified; K21.9 Gastro-esophageal reflux disease without esophagitis; W18.30XA Fall on same level, unspecified, initial encounter

== ENCOUNTER 2021-02-22 16:22 | Emergency (ER) | payer MEDICARE, OTHER | END 2021-02-22 17:10 | disposition home or self-care (01) | LOC: NAV ERS 16:22 | DX: M25.511 Pain in right shoulder (principal); E78.5 Hyperlipidemia, unspecified; J44.9 Chronic obstructive pulmonary disease, unspecified; K21.9 Gastro-esophageal reflux disease without esophagitis; W19.XXXA Unspecified fall, initial encounter ==

== ENCOUNTER 2021-03-29 14:20 | Emergency (ER) | payer MEDICARE, OTHER | END 2021-03-29 15:23 | disposition home or self-care (01) | LOC: NAV ERS 14:20 | DX: G56.02 Carpal tunnel syndrome, left upper limb (principal); M25.511 Pain in right shoulder; G89.29 Other chronic pain; K21.9 Gastro-esophageal reflux disease without esophagitis; E78.5 Hyperlipidemia, unspecified; J44.9 Chronic obstructive pulmonary disease, unspecified; Z79.899 Other long term (current) drug therapy ==

== ENCOUNTER 2021-08-23 16:10 | Outpatient (CLI) | payer MEDICARE, OTHER | END 2021-08-23 16:11 | disposition home or self-care (01) | LOC: NAV RAD 16:10 | PROVIDERS: ATTEND Nurse Practitioner Family | DX: M25.561 Pain in right knee (principal) ==

== ENCOUNTER 2021-09-06 17:53 | Emergency (ER) | payer MEDICARE, OTHER ==
[2021-09-06] MEDS ORDERED: Lidocaine 1% (PF) 30 ML VIAL ONE (18:28)
[2021-09-06] MEDS ORDERED: Sulfameth/Trimethoprim DS 800-160mg TAB ONE (18:52)
[2021-09-06] MEDS ORDERED: Acetaminophen/Codeine 30-300mg Tablet ONE (18:52)
== END 2021-09-06 19:05 | disposition home or self-care (01) ==
LOC: NAV ERS 17:53
DX: L02.413 Cutaneous abscess of right upper limb (principal); M25.511 Pain in right shoulder; E78.5 Hyperlipidemia, unspecified; K21.9 Gastro-esophageal reflux disease without esophagitis; E78.00 Pure hypercholesterolemia, unspecified; J44.9 Chronic obstructive pulmonary disease, unspecified; Z79.899 Other long term (current) drug therapy
CPT/HCPCS: 10060; 87070; 87077; 87186; 87205; J2001

== ENCOUNTER 2021-12-01 16:40 | Emergency (ER) | payer MEDICARE ==
[2021-12-01] MEDS ORDERED: Sodium Chloride 0.9% 1,000 ML ONE (17:25)
[2021-12-01] MEDS ORDERED: diphenhydrAMINE 50 MG/ML VIAL ONE (17:25)
[2021-12-01] MEDS ORDERED: Metoclopramide HCl 10 MG/2 ML VIAL ONE (17:25)
[2021-12-01 17:37] LABS: #Basophils 0.2 thou/uL (0.0-0.2); #Eosinphils 0.4 thou/uL (0.0-0.7); #Lymphocytes 2.6 thou/uL (1.20-3.40); #Monocytes 0.6 thou/uL (0.11-0.59); #Neutrophils 4.5 thou/uL (1.40-6.50); %Basophils 1.9 % (0.0-1.0); %Lymphocytes 31.9 % (21.0-51.0); %Monocytes 6.8 % (0.0-10.0); %Neutrophils 54.5 % (42.0-75.0); Hemoglobin 14.2 g/dL (14.0-18.0); Mean Corpuscular HGB CONC 32.1 g/dL (32.0-36.0); Mean Corpuscular Hemoglobin 32.8 pg (27.0-31.0); Mean Platelet Volume 8.6 fL (7.4-10.4); Platelet Count 184 thou/uL (130-400); RBC Distribution Width 13.1 % (11.5-14.5); Red Blood Cell (RBC) Count 4.33 mill/uL (4.70-6.10); White Blood Cell (WBC) Count 8.3 thou/uL (4.8-10.8)
[2021-12-01] MEDS ORDERED: predniSONE 20 MG TAB ONE (17:54)
[2021-12-01 17:57] LABS: ALT (SGPT) 14 U/L (8-55); AST (SGOT) 21 U/L (5-34); Albumin 4.3 g/dL (3.4-4.8); Alkaline Phosphatase 68 U/L (40-110); Anion Gap 17 mmol/L (10-20); BUN (Urea Nitrogen) 21 mg/dL (8.4-25.7); Bilirubin, Total 0.5 mg/dL (0.2-1.2); CK (CPK) 183 U/L (30-200); CRP (Inflammatory) 2.19 mg/dL (= or < 0.5); Calc. Creatinine Clearance 0 mL/min (70-130); Calcium 9.8 mg/dL (7.8-10.44); Carbon Dioxide 24 mmol/L (23-31); Chloride 107 mmol/L (98-107); Globulin 2.7 g/dL (2.4-3.5); Glucose 92 mg/dL (83-110); Potassium 3.9 mmol/L (3.5-5.1); Sodium 144 mmol/L (136-145)
== END 2021-12-01 18:40 | disposition home or self-care (01) ==
LOC: NAV ERS 16:40
DX: R51.9 Headache, unspecified (principal); J44.9 Chronic obstructive pulmonary disease, unspecified; K21.9 Gastro-esophageal reflux disease without esophagitis; Z79.899 Other long term (current) drug therapy
CPT/HCPCS: 70450; 80053; 82550; 85025; 85652; 86140; 93005; 94760; J1200; J2765; J7050; J7512

== ENCOUNTER 2022-01-20 17:36 | Emergency (ER) | payer MEDICARE ==
[2022-01-20] MEDS ORDERED: Clindamycin 150 MG CAP ONE (18:30)
== END 2022-01-20 18:33 | disposition home or self-care (01) ==
LOC: NAV ERS 17:36
DX: J34.0 Abscess, furuncle and carbuncle of nose (principal); L03.115 Cellulitis of right lower limb; K21.9 Gastro-esophageal reflux disease without esophagitis; J44.9 Chronic obstructive pulmonary disease, unspecified; Z79.899 Other long term (current) drug therapy
CPT/HCPCS: 99283

== ENCOUNTER 2022-01-31 10:39 | Emergency (ER) | payer MEDICARE | END 2022-01-31 11:09 | disposition home or self-care (01) | LOC: NAV ERS 10:39 | DX: L03.115 Cellulitis of right lower limb (principal); L03.114 Cellulitis of left upper limb; L03.113 Cellulitis of right upper limb; K21.9 Gastro-esophageal reflux disease without esophagitis; J44.9 Chronic obstructive pulmonary disease, unspecified; Z79.899 Other long term (current) drug therapy | CPT/HCPCS: 99283 ==

== ENCOUNTER 2022-02-03 18:44 | Emergency (ER) | payer MEDICARE ==
[2022-02-03] MEDS ORDERED: Lidocaine 1% 20 ML MDV ONE (19:04)
== END 2022-02-03 19:30 | disposition home or self-care (01) ==
LOC: NAV ERS 18:44
DX: L02.413 Cutaneous abscess of right upper limb (principal); K21.9 Gastro-esophageal reflux disease without esophagitis; J44.9 Chronic obstructive pulmonary disease, unspecified; Z79.899 Other long term (current) drug therapy
CPT/HCPCS: 10060; 87070; 87077; 87186; 87205

== ENCOUNTER 2022-02-27 10:59 | Emergency (ER) | payer MEDICARE ==
[2022-02-27] MEDS ORDERED: Sodium Chloride 0.9% 1,000 ML ONE ×2 (11:14→12:19)
[2022-02-27 11:31] LABS: #Basophils 0.1 thou/uL (0.0-0.2); #Eosinphils 0.4 thou/uL (0.0-0.7); #Lymphocytes 2.8 thou/uL (1.20-3.40); #Monocytes 0.7 thou/uL (0.11-0.59); #Neutrophils 5.5 thou/uL (1.40-6.50); %Basophils 1.5 % (0.0-1.0); %Eosinophils 4.2 % (0.0-10.0); %Lymphocytes 29.3 % (21.0-51.0); %Monocytes 6.9 % (0.0-10.0); %Neutrophils 58.1 % (42.0-75.0); Hemoglobin 16.2 g/dL (14.0-18.0); Mean Corpuscular HGB CONC 33.2 g/dL (32.0-36.0); Mean Corpuscular Hemoglobin 34.2 pg (27.0-31.0); Mean Platelet Volume 8.8 fL (7.4-10.4); Platelet Count 175 thou/uL (130-400); RBC Distribution Width 12.8 % (11.5-14.5); Red Blood Cell (RBC) Count 4.74 mill/uL (4.70-6.10); White Blood Cell (WBC) Count 9.5 thou/uL (4.8-10.8)
[2022-02-27 11:42] LABS: ALT (SGPT) 25 U/L (8-55); AST (SGOT) 25 U/L (5-34); Albumin 4.2 g/dL (3.4-4.8); Alkaline Phosphatase 108 U/L (40-110); Anion Gap 20 mmol/L (10-20); BUN (Urea Nitrogen) 14 mg/dL (8.4-25.7); Bilirubin, Total 0.5 mg/dL (0.2-1.2); CK (CPK) 129 U/L (30-200); Calc. Creatinine Clearance 0 mL/min (70-130); Calcium 10.2 mg/dL (7.8-10.44); Carbon Dioxide 23 mmol/L (23-31); Chloride 104 mmol/L (98-107); Estimated GFR 67; Globulin 3.1 g/dL (2.4-3.5); Glucose 120 mg/dL (83-110); Magnesium 1.9 mg/dL (1.6-2.6); Potassium 3.7 mmol/L (3.5-5.1); Protein, Total 7.3 g/dL (5.8-8.1); Sodium 143 mmol/L (136-145)
[2022-02-27 12:34] LABS: Bilirubin Small (Negative); Blood, Urine Negative (Negative); Clarity Clear (Clear); Glucose, Urine (Dipstick) Negative (Negative); Ketone, Urine Trace mg/dL (Negative); Leukocyte Negative (Negative); Nitrite Negative (Negative); Protein, Urine (Dipstick) 30 mg/dL (Neg-Trace); Specific Gravity, Urine 1.025 (1.005-1.030); Urobilinogen 0.2 mg/dL (Less than 2)
[2022-02-27 12:41] LABS: Amphetamine Detected (NotDetected); Barbiturates Screen Not Detected (NotDetected); Benzodiazepine Screen Not Detected (NotDetected); Cocaine Metabolite Screen Not Detected (NotDetected); Medtox Control Line Valid? VALID (VALID); Methadone Not Detected (NotDetected); Methamphetamine Detected (NotDetected); Opiate Screen Not Detected (NotDetected); Oxycodone Screen Not Detected (NotDetected); Phencyclidine (PCP) Not Detected (NotDetected); THC/Cannabinoid Screen Not Detected (NotDetected); Tricyclic Screen Not Detected (NotDetected)
[2022-02-27 12:45] LABS: Calcium Oxalate Crystals 1+ HPF (None Seen); RBC/HPF 0-3 HPF (0-3); Squamous Epithelial 0-3 HPF (0-3); WBC/HPF 0-3 HPF (0-3)
[2022-02-27] MEDS ORDERED: Aspirin Chewable 81 MG TAB ONE (12:48)
== END 2022-02-27 13:13 | disposition left against medical advice (07) ==
LOC: NAV ERS 10:59
DX: E86.0 Dehydration (principal); I95.1 Orthostatic hypotension; K21.9 Gastro-esophageal reflux disease without esophagitis; J44.9 Chronic obstructive pulmonary disease, unspecified; Z79.899 Other long term (current) drug therapy
CPT/HCPCS: 71045; 80053; 80306; 80307; 81003; 81015; 82550; 83605; 83735; 83880; 84443; 84484; 85025; 85379; 93005; 94760; 96360; 96361; J7050

== ENCOUNTER 2022-05-03 10:17 | Outpatient (CLI) | payer MEDICARE | END 2022-05-03 10:18 | disposition home or self-care (01) | LOC: NAV CT 10:17 | PROVIDERS: ATTEND Podiatrist | DX: M19.071 Primary osteoarthritis, right ankle and foot (principal); S92.311K Displaced fracture of first metatarsal bone, right foot, subsequent encounter for fracture with nonunion ==

== ENCOUNTER 2022-06-13 13:59 | Emergency (ER) | payer MEDICARE ==
[2022-06-13] MEDS ORDERED: Ketorolac Tromethamine 30 MG/ML VIAL ONE (14:35)
== END 2022-06-13 15:04 | disposition home or self-care (01) ==
LOC: NAV ERS 13:59
DX: M25.532 Pain in left wrist (principal); K21.9 Gastro-esophageal reflux disease without esophagitis; J44.9 Chronic obstructive pulmonary disease, unspecified
CPT/HCPCS: 96372; J1885

== ENCOUNTER 2022-06-26 15:18 | Emergency (ER) | payer MEDICARE ==
[2022-06-26] MEDS ORDERED: Lidocaine 2% Jelly 5 ML TUBE ONE (17:05)
[2022-06-26] MEDS ORDERED: Cephalexin 250 MG CAP ONE (17:06)
[2022-06-26] MEDS ORDERED: Lidocaine 4% Topical Sol 50 ML BOT ONE (17:37)
== END 2022-06-26 17:54 | disposition home or self-care (01) ==
LOC: NAV ERS 15:18
DX: T81.49XA Infection following a procedure, other surgical site, initial encounter (principal); J44.9 Chronic obstructive pulmonary disease, unspecified; K21.9 Gastro-esophageal reflux disease without esophagitis; Z79.899 Other long term (current) drug therapy
CPT/HCPCS: 99283

== ENCOUNTER 2022-12-27 10:13 | Emergency (ER) | payer MEDICARE ==
[2022-12-27 10:47] LABS: #Basophils 0.1 thou/uL (0.0-0.2); #Eosinphils 0.3 thou/uL (0.0-0.7); #Monocytes 0.8 thou/uL (0.11-0.59); #Neutrophils 5.8 thou/uL (1.40-6.50); %Basophils 1.5 % (0.0-1.0); %Eosinophils 3.3 % (0.0-10.0); %Lymphocytes 21.8 % (21.0-51.0); %Monocytes 8.9 % (0.0-10.0); %Neutrophils 64.5 % (42.0-75.0); Hemoglobin 16.7 g/dL (14.0-18.0); Mean Corpuscular HGB CONC 34.5 g/dL (32.0-36.0); Mean Corpuscular Hemoglobin 34.2 pg (27.0-31.0); Mean Corpuscular Volume 99.1 fl (78.0-98.0); Mean Platelet Volume 7.6 fL (7.4-10.4); Platelet Count 184 10x3/uL (130-400); RBC Distribution Width 12.7 % (11.5-14.5); Red Blood Cell (RBC) Count 4.87 mill/uL (4.70-6.10)
[2022-12-27 10:49] LABS: ALT (SGPT) 19 U/L (8-55); AST (SGOT) 28 U/L (5-34); Albumin 4.2 g/dL (3.4-4.8); Alkaline Phosphatase 123 U/L (40-110); Anion Gap 19 mmol/L (10-20); BUN (Urea Nitrogen) 14 mg/dL (8.4-25.7); Bilirubin, Total 0.8 mg/dL (0.2-1.2); Calc. Creatinine Clearance 0 mL/min (70-130); Calcium 10.6 mg/dL (7.8-10.44); Carbon Dioxide 18 mmol/L (23-31); Chloride 105 mmol/L (98-107); Estimated GFR 46; Globulin 2.9 g/dL (2.4-3.5); Glucose 139 mg/dL (83-110); Potassium 3.6 mmol/L (3.5-5.1); Protein, Total 7.1 g/dL (5.8-8.1); Sodium 138 mmol/L (136-145)
[2022-12-27 10:58] LABS: Prothrombin Time 13.6 sec (12.0-14.7)
[2022-12-27 10:59] LABS: PTT 26.4 sec (22.9-36.1)
[2022-12-27 11:07] LABS: Bilirubin Small (Negative); Blood, Urine Moderate (Negative); Clarity Clear (Clear); Glucose, Urine (Dipstick) Negative (Negative); Ketone, Urine Trace mg/dL (Negative); Leukocyte Negative (Negative); Nitrite Negative (Negative); Protein, Urine (Dipstick) 100 mg/dL (Neg-Trace); Specific Gravity, Urine 1.025 (1.005-1.030); Urobilinogen 0.2 mg/dL (Less than 2)
[2022-12-27 11:10] LABS: Acetaminophen Less than 10 mcg/mL (10.0-30.0); Alcohol Less than 10.0 mg/dL (Less than 10); Salicylate Less than 8.0 mg/dL (15.0-30.0)
[2022-12-27 11:17] LABS: Amphetamine Detected (NotDetected); Barbiturates Screen Not Detected (NotDetected); Benzodiazepine Screen Not Detected (NotDetected); Cocaine Metabolite Screen Not Detected (NotDetected); Methadone Not Detected (NotDetected); Methamphetamine Detected (NotDetected); Opiate Screen Not Detected (NotDetected); Oxycodone Screen Not Detected (NotDetected); Phencyclidine (PCP) Not Detected (NotDetected); THC/Cannabinoid Screen Not Detected (NotDetected); Tricyclic Screen Not Detected (NotDetected)
[2022-12-27 11:19] LABS: Bacteria/HPF Rare-Few HPF (None Seen); CAUTI Indications for Culture Alt mental st,lethar; Squamous Epithelial 0-3 HPF (0-3); WBC/HPF None Seen HPF (0-3)
[2022-12-27 11:20] LABS: Urine Culture Reflex No No
[2022-12-27] MEDS ORDERED: Sodium Chloride 0.9% 1,000 ML ONE (11:56)
== END 2022-12-27 13:16 | disposition home or self-care (01) ==
LOC: NAV ERS 10:13
DX: E86.0 Dehydration (principal); F15.10 Other stimulant abuse, uncomplicated; K21.9 Gastro-esophageal reflux disease without esophagitis; J44.9 Chronic obstructive pulmonary disease, unspecified
CPT/HCPCS: 70450; 71045; 80053; 80306; 80307; 81001; 82550; 83880; 84484; 85025; 85610; 85730; 93005; 94760; 96360; 96361; J7050

== ENCOUNTER 2023-02-22 12:06 | Outpatient (CLI) | payer MEDICARE | END 2023-02-22 12:07 | disposition home or self-care (01) | LOC: NAV RAD 12:06 | PROVIDERS: ATTEND Nurse Practitioner Family | DX: M25.551 Pain in right hip (principal) ==

== ENCOUNTER 2023-03-03 07:53 | Emergency (ER) | payer MEDICARE ==
[2023-03-03] MEDS ORDERED: Sulfameth/Trimethoprim DS 800-160mg TAB ONE (08:50)
[2023-03-03] MEDS ORDERED: Cephalexin 250 MG CAP ONE (08:50)
== END 2023-03-03 08:57 | disposition home or self-care (01) ==
LOC: NAV ERS 07:53
DX: A46 Erysipelas (principal); J44.9 Chronic obstructive pulmonary disease, unspecified; K21.9 Gastro-esophageal reflux disease without esophagitis; Z79.899 Other long term (current) drug therapy
CPT/HCPCS: 99283

== ENCOUNTER 2023-05-10 10:41 | Outpatient (CLI) | payer MEDICARE ==
[2023-05-10 10:56] LABS: #Basophils 0.2 thou/uL (0.0-0.2); #Eosinphils 0.6 thou/uL (0.0-0.7); #Lymphocytes 1.7 thou/uL (1.20-3.40); #Monocytes 0.6 thou/uL (0.11-0.59); #Neutrophils 6.3 thou/uL (1.40-6.50); %Basophils 1.7 % (0.0-1.0); %Eosinophils 6.6 % (0.0-10.0); %Lymphocytes 18.5 % (21.0-51.0); %Monocytes 6.2 % (0.0-10.0); Hematocrit 41.9 % (42.0-52.0); Hemoglobin 13.9 g/dL (14.0-18.0); Mean Corpuscular HGB CONC 33.2 g/dL (32.0-36.0); Mean Corpuscular Hemoglobin 33.8 pg (27.0-31.0); Mean Platelet Volume 8.5 fL (7.4-10.4); Platelet Count 209 10x3/uL (130-400); RBC Distribution Width 13.2 % (11.5-14.5); Red Blood Cell (RBC) Count 4.11 mill/uL (4.70-6.10); White Blood Cell (WBC) Count 9.4 10x3/uL (4.8-10.8)
[2023-05-10 11:08] LABS: ALT (SGPT) 23 U/L (8-55); AST (SGOT) 28 U/L (5-34); Albumin 3.4 g/dL (3.4-4.8); Alkaline Phosphatase 69 U/L (40-110); Anion Gap 15 mmol/L (10-20); BUN (Urea Nitrogen) 12 mg/dL (8.4-25.7); Bilirubin, Total 0.3 mg/dL (0.2-1.2); Calc. Creatinine Clearance 0 mL/min (70-130); Calcium 9.8 mg/dL (7.8-10.44); Carbon Dioxide 26 mmol/L (23-31); Chloride 104 mmol/L (98-107); Estimated GFR 66; Globulin 2.6 g/dL (2.4-3.5); Glucose 122 mg/dL (83-110); Potassium 4.7 mmol/L (3.5-5.1); Sodium 140 mmol/L (136-145)
[2023-05-10 13:42] LABS: Follow-up Chemistry Comp? YES; Follow-up Hematology Comp? YES; Follow-up Result - Chemistry REPORT FAXED; Follow-up Result - Hematology REPORT FAXED
== END 2023-05-10 10:42 | disposition home or self-care (01) ==
LOC: NAV LABSP 10:41
PROVIDERS: ATTEND Student in an Organized Health Care Education/Training Program
DX: L03.031 Cellulitis of right toe (principal); M86.10 Other acute osteomyelitis, unspecified site
CPT/HCPCS: 80053; 80202; 85025; 86140

== ENCOUNTER 2024-08-14 15:45 | Outpatient (CLI) | payer OTHER, MEDICARE | END 2024-08-14 15:46 | disposition home or self-care (01) | LOC: NAV RAD 15:45 | PROVIDERS: ATTEND Nurse Practitioner Family | DX: M25.511 Pain in right shoulder (principal); M19.011 Primary osteoarthritis, right shoulder; M48.02 Spinal stenosis, cervical region; M48.04 Spinal stenosis, thoracic region; M25.78 Osteophyte, vertebrae; Z96.611 Presence of right artificial shoulder joint ==